=== PATIENT | male | born 1965 | race Caucasian/White ===

== ENCOUNTER 2022-10-19 10:18 | Outpatient (CLI) | payer OTHER, SELFPAY ==
[2022-10-19 13:48] LABS: Chloride* 105 mmol/L (96-114); Sodium* 140 mmol/L (135-149)
[2022-10-19 13:49] LABS: Potassium* 4.7 mmol/L (3.6-5.1)
[2022-10-19 13:51] LABS: Cholesterol* 170 mg/dL (90-199)
[2022-10-19 13:52] LABS: Blood Urea Nitrogen* 13 mg/dL (7-30); Calcium* 9.7 mg/dL (8.4-10.6); Carbon Dioxide* 29 mmol/L (20-32); Creatinine* 0.8 mg/dL (0.5-1.5); Estimated Glomerular Filt Rate 105 ml/min; Glucose* 99 mg/dL (60-115); Triglycerides* 188 mg/dL (40-149)
[2022-10-19 13:53] LABS: HDL Cholesterol* 42 mg/dL (>=40); LDL Cholesterol Calculated 90 mg/dL (<100)
== END 2022-10-19 10:19 | disposition home or self-care (01) ==
PROVIDERS: PCP Family Medicine; Visit Provider Family Medicine
DX: E78.5 Hyperlipidemia, unspecified (principal); Z13.1 Encounter for screening for diabetes mellitus
CPT/HCPCS: 80048; 80061

== ENCOUNTER 2024-04-17 10:09 | Outpatient (CLI) | payer OTHER, SELFPAY | END 2024-04-17 10:10 | disposition home or self-care (01) | PROVIDERS: PCP Family Medicine; Visit Provider Family Medicine | DX: Z00.00 Encounter for general adult medical examination without abnormal findings (principal); E78.5 Hyperlipidemia, unspecified; Z13.1 Encounter for screening for diabetes mellitus; Z12.5 Encounter for screening for malignant neoplasm of prostate | CPT/HCPCS: 80048; 80061; G0103 ==

== ENCOUNTER 2025-06-04 10:02 | Outpatient (CLI) | payer OTHER, SELFPAY | END 2025-06-04 10:03 | disposition home or self-care (01) | PROVIDERS: PCP Family Medicine; Visit Provider Family Medicine | DX: E78.5 Hyperlipidemia, unspecified (principal); Z12.5 Encounter for screening for malignant neoplasm of prostate; Z13.1 Encounter for screening for diabetes mellitus | CPT/HCPCS: 80048; 80061; G0103 ==